=== PATIENT | female | born 1925 | race Caucasian/White ===

== ENCOUNTER 2016-05-08 10:34 | Emergency (ER) | payer OTHER, MEDICARE ==
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
[2016-05-08] MEDS ORDERED: ACETAMINOPHEN 325 MG TABLET PO ONE (10:44)
[2016-05-08] MEDS ORDERED: LIDOCAINE 5% (700 MG) TRANSDERMAL ADH..PATCH TP ONE (11:52)
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
[2016-05-08 12:21] VITALS: BP 135/59
== END 2016-05-08 12:18 | disposition home or self-care (01) ==
LOC: ER 10:34
DX: S80.12XA Contusion of left lower leg, initial encounter (principal); V43.32XA Unspecified car occupant injured in collision with other type car in nontraffic accident, initial encounter; Y93.89 Activity, other specified; Y92.481 Parking lot as the place of occurrence of the external cause; Z88.2 Allergy status to sulfonamides
CPT/HCPCS: 99283